=== PATIENT | female | born 1935 | race Caucasian/White ===

== ENCOUNTER 2021-10-01 09:02 | Inpatient (IN) | payer MEDICARE ==
[2021-10-01 10:23] VITALS: BMI 24.0
[2021-10-01] MEDS ORDERED: Acetaminophen 325 MG TAB PO PRN (12:29)
[2021-10-01] MEDS ORDERED: Senokot S 8.6-50 MG TAB PO PRN (12:29)
[2021-10-01] MEDS ORDERED: Albuterol Sulfate 2.5 mg/3 ml Neb NEB PRN ×2 (12:54→13:04)
[2021-10-01 14:07] LABS: Troponin I 0.016 ng/mL (< 0.028)
[2021-10-01] MEDS ORDERED: Albuterol Sulfate 2.5 mg/3 ml Neb NEB SCH (15:00)
[2021-10-01 17:23] LABS: Strep pneumo Urine Ag NEGATIVE (NEGATIVE)
[2021-10-01] MEDS: Budesonide 0.25 MG/2 ML NEB INH SCH (19:05)
[2021-10-01] MEDS: predniSONE 20 MG TAB PO SCH (20:04)
[2021-10-01] MEDS ORDERED: Melatonin 3 MG TAB PO PRN (20:14)
[2021-10-01] MEDS: Benzonatate 100 MG CAP PO PRN (20:21)
[2021-10-01] MEDS ORDERED: NIFEdipine XL 60 MG TAB PO SCH (21:00)
[2021-10-01] MEDS ORDERED: Enoxaparin Sodium 40 MG/0.4 ML SYRINGE SC SCH (21:00)
[2021-10-01] MEDS ORDERED: Pramipexole Di-HCl 0.25 MG TAB PO SCH (21:00)
[2021-10-02] MEDS: Benzonatate 100 MG CAP PO PRN (04:37)
[2021-10-02 05:19] LABS: #Lymphocytes 0.8 thou/uL (1.20-3.40); #Monocytes 0.4 thou/uL (0.11-0.59); #Neutrophils 7.1 thou/uL (1.40-6.50); %Basophils 0.1 % (0.0-1.0); %Eosinophils 0.1 % (0.0-10.0); %Lymphocytes 9.9 % (21.0-51.0); Hemoglobin 13.2 g/dL (12.0-16.0); Mean Corpuscular HGB CONC 33.3 g/dL (32.0-36.0); Mean Corpuscular Hemoglobin 32.1 pg (27.0-31.0); Mean Corpuscular Volume 96.5 fL (78.0-98.0); Mean Platelet Volume 6.5 fL (7.4-10.4); Platelet Count 207 thou/uL (130-400); RBC Distribution Width 11.3 % (11.5-14.5); Red Blood Cell (RBC) Count 4.12 mill/uL (4.20-5.40); White Blood Cell (WBC) Count 8.4 thou/uL (4.8-10.8)
[2021-10-02] MEDS ORDERED: guaiFENesin ER 600 MG TAB PO PRN (05:35)
[2021-10-02 05:44] LABS: ALT (SGPT) 21 U/L (8-55); AST (SGOT) 20 U/L (5-34); Albumin 3.4 g/dL (3.4-4.8); Alkaline Phosphatase 69 U/L (40-110); Anion Gap 11 mmol/L (10-20); BUN (Urea Nitrogen) 21 mg/dL (9.8-20.1); Bilirubin, Total 0.3 mg/dL (0.2-1.2); Calc. Creatinine Clearance 58 mL/min (70-130); Carbon Dioxide 25 mmol/L (23-31); Chloride 100 mmol/L (98-107); Globulin 2.2 g/dL (2.4-3.5); Glucose 132 mg/dL (83-110); Potassium 4.6 mmol/L (3.5-5.1); Protein, Total 5.6 g/dL (5.8-8.1); Sodium 131 mmol/L (136-145)
[2021-10-02] MEDS: Budesonide 0.25 MG/2 ML NEB INH SCH (06:39)
[2021-10-02] MEDS ORDERED: Lisinopril 20 MG TAB PO SCH (09:00)
[2021-10-02] MEDS ORDERED: Vit A,C & E/Lutein/Minerals Tablet PO SCH (09:00)
[2021-10-02] MEDS ORDERED: Spironolactone 25 MG TAB PO SCH (09:00)
[2021-10-02] MEDS ORDERED: Azithromycin 250 MG TAB PO SCH (09:00)
[2021-10-02] MEDS: predniSONE 20 MG TAB PO SCH (09:06)
[2021-10-02 11:35] VITALS: BP 158/70; TEMP 98.4
== END 2021-10-02 13:08 | disposition home or self-care (01) | DRG 189 ==
LOC: 2SW 09:02 → OBSVTOIN 12:29
PROVIDERS: ADMIT Family Medicine; ATTEND Family Medicine
DX: J96.01 Acute respiratory failure with hypoxia (principal); J44.1 Chronic obstructive pulmonary disease with (acute) exacerbation; E78.5 Hyperlipidemia, unspecified; I10 Essential (primary) hypertension; F32.A Depression, unspecified; I25.2 Old myocardial infarction; R77.8 Other specified abnormalities of plasma proteins; F17.210 Nicotine dependence, cigarettes, uncomplicated; G25.81 Restless legs syndrome; Z85.3 Personal history of malignant neoplasm of breast; Z92.3 Personal history of irradiation; Z88.8 Allergy status to other drugs, medicaments and biological substances; Z79.51 Long term (current) use of inhaled steroids; Z79.899 Other long term (current) drug therapy; Z98.890 Other specified postprocedural states
CPT/HCPCS: 36415; 80053; 84145; 85025; 87449; 87804; 94640; J1650; J7512; J7620; J7626

== ENCOUNTER 2024-06-30 14:39 | Inpatient (IN) | payer MEDICARE ==
[~2024-06-30 14:39] MED LIST: Iopamidol-370 76% 500 ML MDV (1 ML CHARGE) ONE
[2024-06-30 16:03] LABS: #Basophils 0.07 10x3/uL (0.0-0.2); %Basophils 0.7 % (0.0-1.0); %Eosinophils 1.4 % (0.0-10.0); %Lymphocytes 16.4 % (21.0-51.0); %Monocytes 6.7 % (0.0-10.0); %Neutrophils 74.5 % (42.0-75.0); Hematocrit 46.9 % (36.0-47.0); Hemoglobin 16.6 g/dL (12.0-16.0); Mean Corpuscular HGB CONC 35.4 g/dL (32.0-36.0); Mean Corpuscular Hemoglobin 31.9 pg (27.0-31.0); Mean Corpuscular Volume 90.2 fL (78.0-98.0); Mean Platelet Volume 8.7 fL (7.4-10.4); Platelet Count 272 10x3/uL (130-400); RBC Distribution Width 12.2 % (11.5-14.5)
[2024-06-30 16:21] LABS: ALT (SGPT) 23 U/L (8-55); AST (SGOT) 27 U/L (5-34); Albumin 3.9 g/dL (3.4-4.8); Alkaline Phosphatase 63 U/L (40-110); Anion Gap 13 mmol/L (10-20); BUN (Urea Nitrogen) 16 mg/dL (9.8-20.1); Bilirubin, Total 0.7 mg/dL (0.2-1.2); Calc. Creatinine Clearance 0 mL/min (70-130); Calcium 9.9 mg/dL (7.8-10.44); Carbon Dioxide 26 mmol/L (23-31); Chloride 91 mmol/L (98-107); Estimated GFR 54; Globulin 2.9 g/dL (2.4-3.5); Glucose 104 mg/dL (83-110); Lipase 38 U/L (8-78); Potassium 4.6 mmol/L (3.5-5.1); Protein, Total 6.8 g/dL (5.8-8.1); Sodium 125 mmol/L (136-145)
[2024-06-30] MEDS ORDERED: Ketorolac Tromethamine 30 MG (1 mL) VIAL ONE (17:27)
[2024-06-30] MEDS ORDERED: Morphine 4 MG/ML VIAL ONE (17:27)
[2024-06-30] MEDS ORDERED: Ondansetron PF 4 MG/2 ML Vial ONE (17:27)
[2024-06-30 19:01] LABS: Bacteria/HPF None Seen HPF (None Seen); Bilirubin Negative (Negative); Blood, Urine Negative (Negative); CAUTI Indications for Culture Dysuria,urgency,freq; Clarity Clear (Clear); Glucose, Urine (Dipstick) Normal (Negative); Ketone, Urine Negative (Negative); Leukocyte Negative Leu/uL (Negative); Nitrite Negative (Negative); Protein, Urine (Dipstick) Negative (Neg-Trace); RBC/HPF 0-3 HPF (0-3); Squamous Epithelial 0-3 HPF (0-3); Urobilinogen Normal mg/dL (Less than 2); WBC/HPF None Seen HPF (0-3); pH, Urine 7.5 (5.0-9.0)
[2024-06-30 19:02] LABS: Urine Culture Reflex No No
[2024-06-30 21:14] VITALS: BMI 23.2
[2024-06-30] MEDS ORDERED: Acetaminophen 650 MG Suppository PR PRN (22:14)
[2024-06-30] MEDS ORDERED: Ondansetron PF 4 MG/2 ML Vial IVP PRN (22:14)
[2024-06-30] MEDS ORDERED: Ipratropium/Albuterol 3 ML NEB EZPAP PRN (22:18)
[2024-06-30] MEDS: Sodium Chloride 0.9% 1,000 ML IV SCH (23:23)
[2024-06-30] MEDS: Ketorolac Tromethamine 30 MG (1 mL) VIAL IVP PRN (23:23)
[2024-06-30] MEDS: Pramipexole Di-HCl 0.25 MG TAB PO PRN (23:40)
[2024-06-30 23:46] LABS: Anion Gap 11 mmol/L (10-20); BUN (Urea Nitrogen) 17 mg/dL (9.8-20.1); Calc. Creatinine Clearance 46 mL/min (70-130); Calcium 8.7 mg/dL (7.8-10.44); Carbon Dioxide 24 mmol/L (23-31); Chloride 97 mmol/L (98-107); Estimated GFR 60; Glucose 90 mg/dL (83-110); Potassium 4.8 mmol/L (3.5-5.1); Sodium 127 mmol/L (136-145)
[2024-07-01 06:26] LABS: Anion Gap 11 mmol/L (10-20); BUN (Urea Nitrogen) 16 mg/dL (9.8-20.1); Calc. Creatinine Clearance 46 mL/min (70-130); Calcium 8.8 mg/dL (7.8-10.44); Carbon Dioxide 25 mmol/L (23-31); Chloride 97 mmol/L (98-107); Estimated GFR 60; Glucose 80 mg/dL (83-110); Potassium 4.6 mmol/L (3.5-5.1); Sodium 128 mmol/L (136-145)
[2024-07-01 06:29] LABS: #Basophils 0.06 10x3/uL (0.0-0.2); %Basophils 0.8 % (0.0-1.0); %Eosinophils 2.5 % (0.0-10.0); %Lymphocytes 15.4 % (21.0-51.0); Hemoglobin 14.4 g/dL (12.0-16.0); Mean Corpuscular HGB CONC 35.1 g/dL (32.0-36.0); Mean Corpuscular Hemoglobin 31.4 pg (27.0-31.0); Mean Corpuscular Volume 89.3 fL (78.0-98.0); Mean Platelet Volume 9.4 fL (7.4-10.4); Platelet Count 209 10x3/uL (130-400); RBC Distribution Width 12.2 % (11.5-14.5); Red Blood Cell (RBC) Count 4.59 mill/uL (4.20-5.40)
[2024-07-01] MEDS: Ezetimibe 10 MG TAB PO SCH (08:15)
[2024-07-01] MEDS: hydrALAZINE 25 MG TAB PO SCH (08:16)
[2024-07-01] MEDS: Trospium 20 MG TAB PO SCH (08:16)
[2024-07-01] MEDS: Sertraline 25 MG TAB PO SCH (08:16)
[2024-07-01] MEDS: NIFEdipine XL 60 MG ER.TAB PO SCH (08:16)
[2024-07-01] MEDS: Lisinopril 20 MG TAB PO SCH (08:17)
[2024-07-01] MEDS: Mag-Al Plus 1200/1200/120 MG (30 mL) UDCUP PO PRN (11:48)
[2024-07-01] MEDS ORDERED: Gabapentin 300 MG CAP PO PRN (14:53)
[2024-07-01] MEDS ORDERED: guaiFENesin ER 600 MG TAB PO PRN (14:53)
[2024-07-01] MEDS ORDERED: Albuterol 200 PUFF INH INH PRN (14:53)
[2024-07-01] MEDS: Ketorolac Tromethamine 30 MG (1 mL) VIAL IVP SCH (17:26)
[2024-07-01] MEDS: Ipratropium Bromide 2.5 ml Neb NEB SCH (19:43)
[2024-07-01] MEDS: Vit A,C & E/Lutein/Minerals Tablet PO SCH (20:06)
[2024-07-01] MEDS ORDERED: Simethicone Chewable 80 MG TAB PO PRN (20:20)
[2024-07-01] MEDS: Simethicone Chewable 80 MG TAB PO SCH (21:40)
[2024-07-02 07:54] LABS: #Basophils 0.08 10x3/uL (0.0-0.2); %Basophils 0.9 % (0.0-1.0); %Eosinophils 1.9 % (0.0-10.0); %Lymphocytes 17.4 % (21.0-51.0); %Monocytes 7.3 % (0.0-10.0); %Neutrophils 72.1 % (42.0-75.0); Hematocrit 40.3 % (36.0-47.0); Hemoglobin 14.2 g/dL (12.0-16.0); Mean Corpuscular HGB CONC 35.2 g/dL (32.0-36.0); Mean Corpuscular Hemoglobin 32.1 pg (27.0-31.0); Mean Corpuscular Volume 91.2 fL (78.0-98.0); Platelet Count 205 10x3/uL (130-400); Red Blood Cell (RBC) Count 4.42 mill/uL (4.20-5.40)
[2024-07-02 08:11] LABS: Anion Gap 12 mmol/L (10-20); BUN (Urea Nitrogen) 12 mg/dL (9.8-20.1); Calc. Creatinine Clearance 52 mL/min (70-130); Calcium 8.9 mg/dL (7.8-10.44); Carbon Dioxide 23 mmol/L (23-31); Chloride 94 mmol/L (98-107); Estimated GFR 69; Glucose 85 mg/dL (83-110); Potassium 4.8 mmol/L (3.5-5.1); Sodium 124 mmol/L (136-145)
[2024-07-02] MEDS ORDERED: Metamucil PACK PO SCH (16:00)
[2024-07-02] MEDS: Metamucil PACK PO SCH (16:16)
[2024-07-02] MEDS: traMADol HCl 50 MG TAB PO SCH ×2 (16:16→21:07)
[2024-07-02] MEDS: Acetaminophen/Codeine 30-300mg Tablet PO SCH (21:05)
[2024-07-02] MEDS: Sodium Chloride 1 GM TAB PO SCH (21:07)
[2024-07-03 07:36] LABS: Anion Gap 9 mmol/L (10-20); BUN (Urea Nitrogen) 18 mg/dL (9.8-20.1); Calc. Creatinine Clearance 47 mL/min (70-130); Calcium 9.2 mg/dL (7.8-10.44); Carbon Dioxide 26 mmol/L (23-31); Chloride 94 mmol/L (98-107); Estimated GFR 62; Glucose 88 mg/dL (83-110); Sodium 124 mmol/L (136-145)
[2024-07-03] MEDS: Metamucil PACK PO SCH (08:59)
[2024-07-03 12:03] VITALS: BP 123/63; TEMP 97.8
[2024-07-03] MEDS: Pramipexole Di-HCl 0.25 MG TAB PO SCH (13:22)
== END 2024-07-03 13:35 | disposition home or self-care (01) | DRG 563 ==
LOC: ERS 14:39 → T4-B 20:02 → OBSVTOIN 07-01 14:52
PROVIDERS: ADMIT Internal Medicine; ATTEND Family Medicine
DX: S39.011A Strain of muscle, fascia and tendon of abdomen, initial encounter (principal); E87.1 Hypo-osmolality and hyponatremia; K59.00 Constipation, unspecified; I10 Essential (primary) hypertension; E78.5 Hyperlipidemia, unspecified; J44.9 Chronic obstructive pulmonary disease, unspecified; F17.210 Nicotine dependence, cigarettes, uncomplicated; I73.9 Peripheral vascular disease, unspecified; Z88.5 Allergy status to narcotic agent; Z88.8 Allergy status to other drugs, medicaments and biological substances; Z98.890 Other specified postprocedural states; Z90.710 Acquired absence of both cervix and uterus
CPT/HCPCS: 36415; 74177; 80048; 80053; 81001; 83605; 83690; 84300; 85025; 93005; 94640; 96374; 96375; 96376; G0378; J1885; J2272; J2405; J7030; J7644; Q9967